=== PATIENT | male | born 1945 | race Caucasian/White ===

== ENCOUNTER 2016-09-08 09:18 | Inpatient (IN) | payer MEDICARE, OTHER ==
[~2016-09-08] VITALS: Ht 177.8 cm; Wt 85.7 kg
[2016-09-08] MEDS ORDERED: ALFU10TA10 PO (09:34)
[2016-09-08] MEDS ORDERED: TEMA15CA PO (09:34)
[2016-09-08] MEDS ORDERED: ASPI81TA31 PO (09:34)
[2016-09-08] MEDS ORDERED: BENA20TA2 PO (09:35)
[2016-09-08] MEDS ORDERED: CHOL4PAC5 PO (09:35)
[2016-09-08] MEDS ORDERED: BRIN10DR EACHEYE (09:35)
[2016-09-08] MEDS ORDERED: DULO60CA45 PO (09:36)
[2016-09-08] MEDS ORDERED: FINA5TAB11 PO (09:36)
[2016-09-08] MEDS ORDERED: HYDR-3326 PO (09:37)
[2016-09-08] MEDS ORDERED: GLIM4TAB3 PO (09:37)
--- NOTE | 2016-09-08 09:37 | NUR ---
PT IS IN ROOM #2A. DR ALSTON EVALUATED THE PT.
[2016-09-08] MEDS ORDERED: INSU100I19 SQ ×2 (09:43→09:45)
[2016-09-08] MEDS ORDERED: BIMA2.5D5 EACHEYE (09:45)
[2016-09-08] MEDS ORDERED: METF10002 PO (09:45)
[2016-09-08 09:46] LABS: BASOPHILS % (AUTO) 0.4 % (0.0-2.0); EOSINOPHILS % (AUTO) 0.1 % (0.0-7.0); HEMATOCRIT 38.7 % (40.0-50.0); HEMOGLOBIN 13.2 g/dL (14.0-18.0); LYMPHOCYTES # (AUTO) 1.1 K/uL (0.8-4.8); LYMPHOCYTES % (AUTO) 20.7 % (20.5-51.5); MEAN CORPUSCULAR HEMOGLOBIN 30.5 uug (27.0-31.0); MEAN CORPUSCULAR HGB CONC 34 g/dL (32.0-37.0); MEAN CORPUSCULAR VOLUME 89.4 fL (82.0-92.0); MONOCYTES # (AUTO) 0.5 K/uL (0.1-1.30); MONOCYTES % (AUTO) 10.1 % (0.0-11.0); NEUTROPHILS # (AUTO) 3.7 K/uL (1.8-8.9); NEUTROPHILS % (AUTO) 68.7 % (38.5-71.5); PLATELET COUNT (AUTO) 102 K/uL (150-450); RED BLOOD CELL COUNT(AUTO) 4.33 MIL/uL (4.70-6.10); RED CELL DISTRIBUTION WIDTH 13.5 % (11.5-14.5); WHITE BLOOD COUNT (AUTO) 5.3 K/uL (4.0-11.2)
[2016-09-08] MEDS ORDERED: ZOLP10TA6 PO (09:47)
[2016-09-08] MEDS ORDERED: TRAM50TA2 PO (09:47)
[2016-09-08 09:53] LABS: CARBON DIOXIDE 24 mmol/L (21-32); CHLORIDE 103 mmol/L (98-107); CREATININE 1.2 mg/dL (0.6-1.3); GFR 60 mL/min (>60); GLUCOSE 151 mg/dL (74-106); POTASSIUM 3.6 mmol/L (3.5-5.1); SODIUM SERUM 140 mmol/L (136-145); UREA NITROGEN, BLOOD 17 mg/dL (7-18)
[2016-09-08 09:59] LABS: ALANINE AMINOTRANSFERASE 29 U/L (16-63); ALBUMIN 3.8 g/dL (3.4-5.0); ALKALINE PHOSPHATASE 55 U/L (50-136); ASPARTATE AMINOTRANSFERASE 22 U/L (15-37); BILIRUBIN,TOTAL 1.6 mg/dL (0.2-1.0)
[2016-09-08 10:07] LABS: ACETAMINOPHEN < 2.0 ug/mL (10-30)
[2016-09-08 10:15] LABS: ETHANOL < 3 MG/DL (0-0)
[2016-09-08] MEDS ORDERED: LORAZEPAM 2 MG/1 ML VIAL IV ONE (11:45)
[2016-09-08 11:56] LABS: *AMPHETAMINE, URINE NEGATIVE (NEGATIVE); *BARBITURATE, URINE NEGATIVE (NEGATIVE); *CANNABINOID, URINE NEGATIVE (NEGATIVE); *COCCAINE, URINE NEGATIVE (NEGATIVE); *OPIATE, URINE NEGATIVE (NEGATIVE); *PHENCYCLIDINE SCREEN,URINE NEGATIVE (NEGATIVE)
[2016-09-08] MEDS ORDERED: LORAZEPAM 2 MG/1 ML VIAL ONE (12:00)
--- NOTE | 2016-09-08 14:47 | NUR ---
Psych eval done by Robert; to be admitted to [facility], report given to the unit nurse. Pt a/o x 4, vss, nad at this time.
[2016-09-08] MEDS ORDERED: MAG HYDROX/AL HYDROX/SIMETH 30 ML LIQUID UDC PO PRN (16:00)
[2016-09-08] MEDS ORDERED: ACETAMINOPHEN 325 MG TABLET PO PRN (16:00)
[2016-09-08] MEDS ORDERED: MAGNESIUM HYDROXIDE 30 ML LIQUID UDC PO PRN (16:00)
--- NOTE | 2016-09-08 16:32 | NUR ---
PAGED DR PASTRANA TO NOTIFY OF ADMISSION AND ASK TO RECONCILE MEDS.
[2016-09-08 20:26] VITALS: BP 140/77
[2016-09-08] MEDS: BLOOD SUGAR DIAGNOSTIC 1 EACH STRIP VI SCH (20:28)
[2016-09-08] MEDS: TEMAZEPAM 7.5 MG CAPSULE PO PRN (20:32)
[2016-09-08] MEDS ORDERED: DEXTROSE 50% 50 ML DISP.SYRIN IV PRN (21:15)
--- NOTE | 2016-09-08 22:00 | NUR ---
received to care, pleasant, but hyperverbal, and manic. interacts well with peers and staff. PRN restoril was given at 2031, and, by 2129, he was asleep, in his bed. as of 2199, he remains asleep. no distress noted. will continue to monitor closely.
[2016-09-08] MEDS: LORAZEPAM 1 MG TABLET PO PRN (23:25)
--- NOTE | 2016-09-08 23:25 | NUR ---
pt is now awake. c/o anxiety; PRN ativan was given, and he went back to bed.
--- NOTE | 2016-09-09 05:00 | NUR ---
slept 4.5 hours total. continues to sleep. no distress noted.
[2016-09-09] MEDS: BLOOD SUGAR DIAGNOSTIC 1 EACH STRIP VI SCH ×4 (06:25→20:18)
[2016-09-09 07:30] VITALS: BP 132/78
[2016-09-09 08:39] LABS: BASOPHILS % (AUTO) 0.4 % (0.0-2.0); EOSINOPHILS % (AUTO) 0.4 % (0.0-7.0); HEMATOCRIT 37.9 % (40.0-50.0); HEMOGLOBIN 13.1 g/dL (14.0-18.0); LYMPHOCYTES # (AUTO) 0.9 K/uL (0.8-4.8); LYMPHOCYTES % (AUTO) 26.6 % (20.5-51.5); MEAN CORPUSCULAR HEMOGLOBIN 30.9 uug (27.0-31.0); MEAN CORPUSCULAR HGB CONC 35 g/dL (32.0-37.0); MEAN CORPUSCULAR VOLUME 89.6 fL (82.0-92.0); MONOCYTES # (AUTO) 0.4 K/uL (0.1-1.30); MONOCYTES % (AUTO) 9.9 % (0.0-11.0); NEUTROPHILS # (AUTO) 2.3 K/uL (1.8-8.9); NEUTROPHILS % (AUTO) 62.7 % (38.5-71.5); RED BLOOD CELL COUNT(AUTO) 4.24 MIL/uL (4.70-6.10); RED CELL DISTRIBUTION WIDTH 13.6 % (11.5-14.5); WHITE BLOOD COUNT (AUTO) 3.6 K/uL (4.0-11.2)
[2016-09-09 08:51] LABS: ALBUMIN 3.5 g/dL (3.4-5.0); BILIRUBIN,TOTAL 1.3 mg/dL (0.2-1.0); CALCIUM 8.2 mg/dL (8.5-10.1); CREATININE 1.1 mg/dL (0.6-1.3); MAGNESIUM 1.5 mg/dL (1.8-2.4); POTASSIUM 3.7 mmol/L (3.5-5.1); TOTAL PROTEIN, SERUM 6.6 g/dL (6.4-8.2)
[2016-09-09] MEDS: BENAZEPRIL HCL 20 MG TABLET PO SCH (09:00)
[2016-09-09] MEDS ORDERED: ASPIRIN 81 MG TAB.CHEW PO SCH (09:00)
[2016-09-09] MEDS: FINASTERIDE 5 MG TABLET PO SCH (09:00)
[2016-09-09] MEDS ORDERED: BRINZOLAMIDE 1% OPHT DROP 10 ML BOTTLE EACHEYE SCH (09:00)
[2016-09-09] MEDS: INSULIN DETEMIR 300 UNIT/3 ML CARTRIDGE SQ SCH ×2 (09:05→20:18)
[2016-09-09 09:11] LABS: THYROID STIMULATING HORMONE 0.437 mIU/mL (0.358-3.740)
[2016-09-09 09:23] LABS: PLATELET COUNT (AUTO) 90 K/uL (150-450)
[2016-09-09] MEDS ORDERED: MAGNESIUM OXIDE 400 MG TABLET PO ONE (10:15)
[2016-09-09] MEDS: CHOLESTYRAMINE/SUCROSE 4 GM PACKET PO SCH ×2 (11:00→17:32)
[2016-09-09] MEDS: DORZOLAMIDE 2% OPHT DROP 10 ML BOTTLE EACHEYE SCH ×2 (12:38→17:32)
[2016-09-09] MEDS: LORAZEPAM 1 MG TABLET PO PRN (15:30)
--- NOTE | 2016-09-09 15:49 | NUR ---
Initial discharge instructions:Patient resides at home with his [[id number] [place], [place],[address];[phone]].Per patient,he would like to return home upon discharge.SW spoke with who reported she would like the pt to return home.SW will speak with patient,,and MD regarding appropriate discharge plans.SW will form a safe and proper discharge.
[2016-09-09] MEDS ORDERED: BIMATOPROST 0.01% OPHT DROP 2.5 ML BOTTLE EACHEYE SCH (18:00)
--- NOTE | 2016-09-09 20:00 | NUR ---
PT RECEIVED IN HIS ROOM LYING IN BED AWAKE,PLEASANT UPON APPROACH. LESS ANXIOUS, LESS HYPERVERBAL, DENIES ANY PAIN, ABLE TO MAKE NEEDS KNOWN, WILL CONTINUE TO MONITOR CLOSELY.
[2016-09-09 20:11] VITALS: BP 119/79
[2016-09-09] MEDS: LATANOPROST OPHT DROP 2.5 ML BOTTLE EACHEYE SCH (20:15)
[2016-09-09] MEDS: ALFUZOSIN HCL 10 MG TAB.SR.24H PO SCH (20:15)
[2016-09-09] MEDS: INSULIN REGULAR, HUMAN 300 UNIT/3 ML VIAL SQ PRN (20:21)
[2016-09-09] MEDS: TEMAZEPAM 7.5 MG CAPSULE PO PRN (22:18)
[2016-09-09] MEDS: DIVALPROEX 250 MG TABLET.DR PO SCH (22:18)
[2016-09-09] MEDS ORDERED: DIVALPROEX 250 MG TABLET.DR PO ONE (22:26)
[2016-09-10] MEDS: BLOOD SUGAR DIAGNOSTIC 1 EACH STRIP VI SCH ×4 (06:39→20:50)
[2016-09-10 08:00] VITALS: BP 117/73
[2016-09-10] MEDS: INSULIN REGULAR, HUMAN 300 UNIT/3 ML VIAL SQ PRN ×3 (08:33→20:51)
[2016-09-10] MEDS: BENAZEPRIL HCL 20 MG TABLET PO SCH (08:35)
[2016-09-10] MEDS: FINASTERIDE 5 MG TABLET PO SCH (08:35)
[2016-09-10] MEDS: DIVALPROEX 250 MG TABLET.DR PO SCH ×3 (08:36→18:28)
[2016-09-10] MEDS: INSULIN DETEMIR 300 UNIT/3 ML CARTRIDGE SQ SCH ×2 (08:39→20:52)
[2016-09-10] MEDS: DORZOLAMIDE 2% OPHT DROP 10 ML BOTTLE EACHEYE SCH ×2 (08:55→18:28)
[2016-09-10] MEDS: TRAMADOL HCL 50 MG TABLET PO PRN (10:59)
[2016-09-10] MEDS: CHOLESTYRAMINE/SUCROSE 4 GM PACKET PO SCH ×2 (11:13→17:00)
--- NOTE | 2016-09-10 11:17 | NUR ---
UR Note: SW received voicemail from [email or web address] [phone] with [facility] and stated the patient has been authorized for 9 days [09/08/16-09/16/16]. Review is due on 09/16/16. Authorization #[id number]
[2016-09-10 16:00] VITALS: BP 95/49
[2016-09-10] MEDS: LATANOPROST OPHT DROP 2.5 ML BOTTLE EACHEYE SCH (20:50)
[2016-09-10] MEDS: ALFUZOSIN HCL 10 MG TAB.SR.24H PO SCH (20:51)
[2016-09-10 21:27] VITALS: BP 120/70
[2016-09-10] MEDS: TEMAZEPAM 7.5 MG CAPSULE PO PRN (22:08)
[2016-09-11] MEDS: BLOOD SUGAR DIAGNOSTIC 1 EACH STRIP VI SCH ×4 (06:38→20:11)
[2016-09-11 07:30] VITALS: BP 138/82
[2016-09-11] MEDS: DIVALPROEX 250 MG TABLET.DR PO SCH ×2 (08:24→12:45)
[2016-09-11] MEDS: BENAZEPRIL HCL 20 MG TABLET PO SCH (08:25)
[2016-09-11] MEDS: FINASTERIDE 5 MG TABLET PO SCH (08:25)
[2016-09-11] MEDS: DORZOLAMIDE 2% OPHT DROP 10 ML BOTTLE EACHEYE SCH ×2 (08:25→17:08)
[2016-09-11] MEDS: INSULIN DETEMIR 300 UNIT/3 ML CARTRIDGE SQ SCH ×2 (08:27→20:13)
[2016-09-11] MEDS: CHOLESTYRAMINE/SUCROSE 4 GM PACKET PO SCH ×2 (11:00→17:07)
[2016-09-11] MEDS: INSULIN REGULAR, HUMAN 300 UNIT/3 ML VIAL SQ PRN ×2 (12:42→20:13)
[2016-09-11 15:27] VITALS: BP 107/66
[2016-09-11 20:00] VITALS: BP 136/81
[2016-09-11] MEDS ORDERED: DIVALPROEX 500 MG TABLET.DR PO SCH (20:00)
[2016-09-11] MEDS: LATANOPROST OPHT DROP 2.5 ML BOTTLE EACHEYE SCH (20:15)
[2016-09-11] MEDS: ALFUZOSIN HCL 10 MG TAB.SR.24H PO SCH (20:19)
[2016-09-11] MEDS ORDERED: TEMAZEPAM 7.5 MG CAPSULE PO PRN (21:00)
[2016-09-11] MEDS: ZOLPIDEM 5 MG TABLET PO PRN (22:23)
[2016-09-11] MEDS ORDERED: ZOLPIDEM 5 MG TABLET ONE (22:29)
--- NOTE | 2016-09-11 23:51 | NUR ---
GPS: Pt.still awake at this time despite taking Ambien 5mg as ordered an hour ago. Refused repeat dose when offered. Quiet environment provided. Will monitor closely. Fall precautions observed.
[2016-09-12] MEDS: ZOLPIDEM 5 MG TABLET PO PRN (00:31)
[2016-09-12] MEDS ORDERED: ZOLPIDEM 5 MG TABLET ONE (00:37)
[2016-09-12] MEDS: BLOOD SUGAR DIAGNOSTIC 1 EACH STRIP VI SCH ×4 (06:38→20:26)
[2016-09-12 06:55] LABS: BASOPHILS % (AUTO) 0.6 % (0.0-2.0); EOSINOPHILS % (AUTO) 0.3 % (0.0-7.0); HEMATOCRIT 37.2 % (40.0-50.0); HEMOGLOBIN 12.8 g/dL (14.0-18.0); LYMPHOCYTES # (AUTO) 1.2 K/uL (0.8-4.8); LYMPHOCYTES % (AUTO) 37.6 % (20.5-51.5); MEAN CORPUSCULAR HEMOGLOBIN 31.1 uug (27.0-31.0); MEAN CORPUSCULAR HGB CONC 35 g/dL (32.0-37.0); MEAN CORPUSCULAR VOLUME 90.2 fL (82.0-92.0); MONOCYTES # (AUTO) 0.4 K/uL (0.1-1.30); MONOCYTES % (AUTO) 13.9 % (0.0-11.0); NEUTROPHILS # (AUTO) 1.5 K/uL (1.8-8.9); NEUTROPHILS % (AUTO) 47.6 % (38.5-71.5); PLATELET COUNT (AUTO) 90 K/uL (150-450); RED BLOOD CELL COUNT(AUTO) 4.12 MIL/uL (4.70-6.10); RED CELL DISTRIBUTION WIDTH 13.2 % (11.5-14.5); WHITE BLOOD COUNT (AUTO) 3.1 K/uL (4.0-11.2)
[2016-09-12 07:30] VITALS: BP 139/78
[2016-09-12 07:46] LABS: ALBUMIN 3.4 g/dL (3.4-5.0); BILIRUBIN,TOTAL 0.9 mg/dL (0.2-1.0); CALCIUM 8.8 mg/dL (8.5-10.1); CREATININE 1.3 mg/dL (0.6-1.3); POTASSIUM 4.1 mmol/L (3.5-5.1); TOTAL PROTEIN, SERUM 6.7 g/dL (6.4-8.2)
[2016-09-12] MEDS: INSULIN DETEMIR 300 UNIT/3 ML CARTRIDGE SQ SCH ×2 (08:45→20:30)
[2016-09-12] MEDS: DIVALPROEX 250 MG TABLET.DR PO SCH ×2 (08:47→12:27)
[2016-09-12] MEDS: BENAZEPRIL HCL 20 MG TABLET PO SCH (08:47)
[2016-09-12] MEDS: FINASTERIDE 5 MG TABLET PO SCH (08:47)
[2016-09-12] MEDS: DORZOLAMIDE 2% OPHT DROP 10 ML BOTTLE EACHEYE SCH ×2 (08:48→17:23)
[2016-09-12 09:26] LABS: BAND % (MANUAL) 6 % (0-10); EOSINOPHILS % (MANUAL) 1 % (0-8); LYMPHOCYTES % (MANUAL) 40 % (20-40); METAMYELOCYTES % 1 % (0-1); MONOCYTES % (MANUAL) 10 % (2-10); NEUTROPHILS % (MANUAL) 42 % (42-75)
[2016-09-12 09:27] LABS: PLATELET ESTIMATE DECREASED
[2016-09-12] MEDS: LORAZEPAM 1 MG TABLET PO PRN (09:57)
[2016-09-12] MEDS: CHOLESTYRAMINE/SUCROSE 4 GM PACKET PO SCH ×2 (11:00→17:22)
[2016-09-12] MEDS: INSULIN REGULAR, HUMAN 300 UNIT/3 ML VIAL SQ PRN ×2 (12:07→20:28)
[2016-09-12 15:49] VITALS: BP 87/49
[2016-09-12] MEDS: OLANZAPINE 2.5 MG TABLET PO SCH (17:22)
[2016-09-12 19:45] VITALS: BP 108/68
[2016-09-12] MEDS: ALFUZOSIN HCL 10 MG TAB.SR.24H PO SCH (20:28)
[2016-09-12] MEDS: LATANOPROST OPHT DROP 2.5 ML BOTTLE EACHEYE SCH (20:28)
[2016-09-13] MEDS: LORAZEPAM 1 MG TABLET PO PRN ×2 (02:22→15:22)
[2016-09-13] MEDS: BLOOD SUGAR DIAGNOSTIC 1 EACH STRIP VI SCH ×4 (06:37→20:32)
[2016-09-13 07:30] VITALS: BP 96/56
[2016-09-13] MEDS: BENAZEPRIL HCL 20 MG TABLET PO SCH (09:00)
[2016-09-13] MEDS: FINASTERIDE 5 MG TABLET PO SCH (09:33)
[2016-09-13] MEDS: DIVALPROEX 250 MG TABLET.DR PO SCH ×2 (09:34→12:49)
[2016-09-13] MEDS: DORZOLAMIDE 2% OPHT DROP 10 ML BOTTLE EACHEYE SCH ×2 (09:39→17:10)
[2016-09-13] MEDS: INSULIN DETEMIR 300 UNIT/3 ML CARTRIDGE SQ SCH ×2 (09:39→20:42)
[2016-09-13] MEDS: CHOLESTYRAMINE/SUCROSE 4 GM PACKET PO SCH ×2 (11:13→17:00)
[2016-09-13] MEDS: INSULIN REGULAR, HUMAN 300 UNIT/3 ML VIAL SQ PRN ×2 (11:41→17:21)
[2016-09-13 16:25] VITALS: BP 128/69
[2016-09-13] MEDS: OLANZAPINE 2.5 MG TABLET PO SCH (17:09)
[2016-09-13] MEDS: LATANOPROST OPHT DROP 2.5 ML BOTTLE EACHEYE SCH (20:34)
[2016-09-13] MEDS: ALFUZOSIN HCL 10 MG TAB.SR.24H PO SCH (20:34)
[2016-09-13 20:53] VITALS: BP 117/69
[2016-09-13] MEDS ORDERED: DULOXETINE 60 MG CAPSULE.DR PO SCH (21:00)
[2016-09-13] MEDS ORDERED: DULOXETINE 60 MG CAPSULE.DR PO ONE (21:12)
[2016-09-14] MEDS: TRAMADOL HCL 50 MG TABLET PO PRN (02:41)
[2016-09-14] MEDS: LORAZEPAM 1 MG TABLET PO PRN (04:43)
[2016-09-14] MEDS: BLOOD SUGAR DIAGNOSTIC 1 EACH STRIP VI SCH ×4 (06:46→20:33)
[2016-09-14 07:30] VITALS: BP 98/56
[2016-09-14] MEDS: BENAZEPRIL HCL 20 MG TABLET PO SCH (09:00)
[2016-09-14] MEDS: FINASTERIDE 5 MG TABLET PO SCH (09:37)
[2016-09-14] MEDS: GABAPENTIN 300 MG CAPSULE PO SCH ×3 (09:38→17:22)
[2016-09-14] MEDS: DORZOLAMIDE 2% OPHT DROP 10 ML BOTTLE EACHEYE SCH ×2 (09:38→17:20)
[2016-09-14] MEDS: INSULIN DETEMIR 300 UNIT/3 ML CARTRIDGE SQ SCH ×2 (09:44→20:36)
[2016-09-14] MEDS: CHOLESTYRAMINE/SUCROSE 4 GM PACKET PO SCH ×2 (11:00→17:00)
[2016-09-14] MEDS: INSULIN REGULAR, HUMAN 300 UNIT/3 ML VIAL SQ PRN ×3 (12:13→20:35)
[2016-09-14 17:10] VITALS: BP 137/88
[2016-09-14 20:00] VITALS: BP 105/57
[2016-09-14] MEDS: ALFUZOSIN HCL 10 MG TAB.SR.24H PO SCH (20:33)
[2016-09-14] MEDS: LATANOPROST OPHT DROP 2.5 ML BOTTLE EACHEYE SCH (20:33)
[2016-09-14] MEDS ORDERED: OLANZAPINE 5 MG TABLET PO SCH (21:00)
[2016-09-14] MEDS: ZOLPIDEM 5 MG TABLET PO PRN (21:36)
[2016-09-15] MEDS: TRAMADOL HCL 50 MG TABLET PO PRN ×2 (01:44→07:42)
[2016-09-15] MEDS: BLOOD SUGAR DIAGNOSTIC 1 EACH STRIP VI SCH ×4 (06:46→21:08)
[2016-09-15 07:30] VITALS: BP 123/81
[2016-09-15] MEDS: GABAPENTIN 300 MG CAPSULE PO SCH ×3 (08:08→17:32)
[2016-09-15] MEDS: BENAZEPRIL HCL 20 MG TABLET PO SCH (08:11)
[2016-09-15] MEDS: FINASTERIDE 5 MG TABLET PO SCH (08:11)
[2016-09-15] MEDS: DORZOLAMIDE 2% OPHT DROP 10 ML BOTTLE EACHEYE SCH ×2 (08:12→17:41)
[2016-09-15] MEDS: INSULIN DETEMIR 300 UNIT/3 ML CARTRIDGE SQ SCH ×2 (08:16→20:52)
[2016-09-15] MEDS: LORAZEPAM 1 MG TABLET PO PRN (09:41)
[2016-09-15] MEDS: CHOLESTYRAMINE/SUCROSE 4 GM PACKET PO SCH ×2 (11:16→17:32)
[2016-09-15] MEDS: INSULIN REGULAR, HUMAN 300 UNIT/3 ML VIAL SQ PRN ×3 (11:30→20:54)
[2016-09-15 16:00] VITALS: BP 98/53
[2016-09-15 20:10] VITALS: BP 100/53
[2016-09-15] MEDS: ZOLPIDEM 5 MG TABLET PO PRN (20:41)
[2016-09-15] MEDS: ALFUZOSIN HCL 10 MG TAB.SR.24H PO SCH (20:41)
[2016-09-15] MEDS: LATANOPROST OPHT DROP 2.5 ML BOTTLE EACHEYE SCH (20:50)
[2016-09-16] MEDS: BLOOD SUGAR DIAGNOSTIC 1 EACH STRIP VI SCH ×2 (06:20→11:37)
[2016-09-16] MEDS: TRAMADOL HCL 50 MG TABLET PO PRN (06:40)
[2016-09-16 07:02] LABS: BASOPHILS % (AUTO) 0.1 % (0.0-2.0); EOSINOPHILS % (AUTO) 0.3 % (0.0-7.0); HEMATOCRIT 38.4 % (40.0-50.0); HEMOGLOBIN 13.5 g/dL (14.0-18.0); LYMPHOCYTES # (AUTO) 1.4 K/uL (0.8-4.8); LYMPHOCYTES % (AUTO) 24.8 % (20.5-51.5); MEAN CORPUSCULAR HEMOGLOBIN 31.8 uug (27.0-31.0); MEAN CORPUSCULAR HGB CONC 35 g/dL (32.0-37.0); MEAN CORPUSCULAR VOLUME 90.8 fL (82.0-92.0); MONOCYTES # (AUTO) 0.7 K/uL (0.1-1.30); MONOCYTES % (AUTO) 11.9 % (0.0-11.0); NEUTROPHILS # (AUTO) 3.6 K/uL (1.8-8.9); NEUTROPHILS % (AUTO) 62.9 % (38.5-71.5); PLATELET COUNT (AUTO) 115 K/uL (150-450); RED BLOOD CELL COUNT(AUTO) 4.23 MIL/uL (4.70-6.10); RED CELL DISTRIBUTION WIDTH 13.7 % (11.5-14.5); WHITE BLOOD COUNT (AUTO) 5.7 K/uL (4.0-11.2)
[2016-09-16 07:30] VITALS: BP 112/77
[2016-09-16 07:42] LABS: CREATININE 1.3 mg/dL (0.6-1.3); POTASSIUM 4.1 mmol/L (3.5-5.1)
[2016-09-16 07:43] LABS: ALBUMIN 3.7 g/dL (3.4-5.0); MAGNESIUM 1.7 mg/dL (1.8-2.4); PHOSPHOROUS 3.7 mg/dL (2.5-4.9); TOTAL PROTEIN, SERUM 7.2 g/dL (6.4-8.2)
[2016-09-16] MEDS: GABAPENTIN 300 MG CAPSULE PO SCH ×2 (08:09→12:01)
[2016-09-16 08:10] VITALS: BP 112/77
[2016-09-16] MEDS: BENAZEPRIL HCL 20 MG TABLET PO SCH (08:10)
[2016-09-16] MEDS: DORZOLAMIDE 2% OPHT DROP 10 ML BOTTLE EACHEYE SCH (08:11)
[2016-09-16] MEDS: FINASTERIDE 5 MG TABLET PO SCH (08:11)
[2016-09-16] MEDS: INSULIN REGULAR, HUMAN 300 UNIT/3 ML VIAL SQ PRN ×2 (08:16→12:00)
[2016-09-16] MEDS: INSULIN DETEMIR 300 UNIT/3 ML CARTRIDGE SQ SCH (08:17)
[2016-09-16] MEDS ORDERED: MAGNESIUM OXIDE 400 MG TABLET PO ONE (10:00)
--- NOTE | 2016-09-16 10:45 | NUR ---
DC Note: The patient will be discharged today back home [[address] [place], [address]; [phone]] via private transportation at 12:00 pm. Patient will be picked up by his , Roxie Chow. Spoke with Roxie who is aware and agreeable with discharge plans. Patient is aware and agreeable with discharge plans. Patient was provided with a brief substance abuse intervention and referred to [facility] , [facility] , and [facility] . Patient will follow-up with his own private [employer], and was referred to [facility] Psychiatrists such as, Dr.Allen Urbano [phone], Dr. Arthur Markham [phone], Dr.Makhani Sharma [phone], and Dr.Dadoyan Mcclellan [phone].
[2016-09-16] MEDS: CHOLESTYRAMINE/SUCROSE 4 GM PACKET PO SCH (11:00)
--- NOTE | 2016-09-16 13:45 | NUR ---
1300 Discharged instructions given to the patient and , both verbalized understanding. Prescription both psych/medical 1330 Went home with via private car, patient stable condition, denies SI/HI , no delusion/ no hallucinations noted.
== END 2016-09-16 13:30 | disposition home or self-care (01) | DRG 885 ==
LOC: ER 09:18 → GPS 15:18
PROVIDERS: ADMIT Psychiatry & Neurology Psychiatry; ATTEND Internal Medicine
DX: F31.10 Bipolar disorder, current episode manic without psychotic features, unspecified (principal); E11.65 Type 2 diabetes mellitus with hyperglycemia; D61.818 Other pancytopenia; E11.9 Type 2 diabetes mellitus without complications; I10 Essential (primary) hypertension; E11.40 Type 2 diabetes mellitus with diabetic neuropathy, unspecified; E83.42 Hypomagnesemia; F41.9 Anxiety disorder, unspecified; G89.29 Other chronic pain; N40.0 Benign prostatic hyperplasia without lower urinary tract symptoms; Z85.820 Personal history of malignant melanoma of skin; Z90.49 Acquired absence of other specified parts of digestive tract; F10.10 Alcohol abuse, uncomplicated; M19.90 Unspecified osteoarthritis, unspecified site; E78.1 Pure hyperglyceridemia; E80.6 Other disorders of bilirubin metabolism
CPT/HCPCS: 36415; 70450; 80164; 80307; 83735; 84100; 84443; 85025; 93005; A4663; G0480-TC; G6040-TC; J1815; J2060; J3490